=== PATIENT | female | born 1985 | race Caucasian/White ===

== ENCOUNTER 2021-04-15 12:47 | Emergency (ER) | payer OTHER ==
[~2021-04-15] VITALS: Ht 167.6 cm; Wt 75.0 kg
[2021-04-15] MEDS ORDERED: IRON325 M1 (13:00)
[2021-04-15] MEDS ORDERED: PRENATA3 PO (13:00)
[2021-04-15 13:44] VITALS: BP 115/70
== END 2021-04-15 13:44 | disposition home or self-care (01) ==
LOC: ED 12:47
DX: O9A.219 Injury, poisoning and certain other consequences of external causes complicating pregnancy, unspecified trimester (principal); S61.011A Laceration without foreign body of right thumb without damage to nail, initial encounter; W26.0XXA Contact with knife, initial encounter; Y93.G1 Activity, food preparation and clean up; Z3A.00 Weeks of gestation of pregnancy not specified